=== PATIENT | male | born 1990 | race Two or more races ===

== ENCOUNTER 2023-06-16 12:02 | Inpatient (IN) | payer OTHER ==
[2023-06-16 12:21] VITALS: BMI 30.1
[2023-06-16] MEDS ORDERED: LORazepam 2 MG/ML SDV VIAL IM ONE (16:03)
[2023-06-16] MEDS ORDERED: chlordiazePOXIDE HCL 25 MG CAPSULE PO PRN (16:07)
[2023-06-16] MEDS ORDERED: ACETAMINOPHEN 325 MG TABLET (FP) PO PRN (16:16)
[2023-06-16] MEDS ORDERED: BENZONATATE 200 MG CAPSULE PO PRN (16:16)
[2023-06-16] MEDS ORDERED: guaiFENesin 600 MG TABLET.ER (FP) PO PRN (16:16)
[2023-06-16] MEDS ORDERED: ONDANSETRON *ODT* 4 MG TABLET SL PRN (16:16)
[2023-06-16] MEDS ORDERED: MAGNESIUM HYDROX 2400MG/30ML ORAL SUSPENSION 30 ML CUP PO PRN (16:16)
[2023-06-16] MEDS ORDERED: MAG HYDROX/AL HYDROX/SIMETH 30 ML UNIT-DOSE CUP PO PRN (16:16)
[2023-06-16] MEDS ORDERED: BENZOCAINE/MENTHOL (CHLORASEPTIC ) LOZENGE MM PRN (16:16)
[2023-06-16] MEDS ORDERED: BISMUTH SUBSALICYLATE 524 MG/30 ML PO PRN (16:16)
[2023-06-16] MEDS ORDERED: POLYETHYLENE GLYCOL (HEALTHYLAX) 3350 17 GM PACKET PO PRN (16:16)
[2023-06-16] MEDS ORDERED: LOPERAMIDE HCL 2 MG CAPSULE PO PRN (16:16)
[2023-06-16] MEDS ORDERED: DICYCLOMINE HCL 10 MG CAPSULE PO PRN (16:16)
[2023-06-16] MEDS ORDERED: IBUPROFEN 400 MG TABLET (FP) PO PRN (16:16)
[2023-06-16] MEDS: levETIRAcetam 500 MG TABLET (FP) PO SCH ×2 (17:28→22:37)
[2023-06-16] MEDS: chlordiazePOXIDE HCL 25 MG CAPSULE PO SCH ×2 (17:29→22:37)
[2023-06-16] MEDS: THIAMINE HCL 100 MG TABLET (FP) PO SCH (22:36)
[2023-06-16] MEDS: MELATONIN 5 MG TABLETS PO SCH (22:37)
[2023-06-17] MEDS: chlordiazePOXIDE HCL 25 MG CAPSULE PO SCH ×4 (05:18→22:21)
[2023-06-17] MEDS: hydrOXYzine PAMOATE 25 MG CAPSULE (FP) PO PRN (10:25)
[2023-06-17] MEDS: PRENATAL VITAMINS W/ FOLIC ACID TABLET (FP) PO SCH (10:25)
[2023-06-17] MEDS: METHOCARBAMOL 500 MG TABLET PO PRN (10:25)
[2023-06-17] MEDS: levETIRAcetam 500 MG TABLET (FP) PO SCH ×2 (10:25→22:21)
[2023-06-17 12:13] LABS: CALCIUM 9.1 mg/dL (8.5-10.1)
[2023-06-17 12:14] LABS: BLOOD UREA NITROGEN 11.1 mg/dL (7-18); HEMATOCRIT 45.4 % (35.4-49); HEMOGLOBIN 14.8 GM/dL (11.7-16.9); MCH 29.5 pg (25.7-33.7); MCHC 32.7 g/dl (32.0-35.9); MEAN CELL VOLUME 90.1 fl (80-96); MEAN PLT VOLUME 8.9 fl (7.5-11.1); PLATELET COUNT 213 10^3/uL (134-434); RBC 5.04 M/mm3 (4.00-5.60); RDW 13.9 % (11.9-15.9); WHITE BLOOD COUNT 5.1 K/mm3 (4.0-10.0)
[2023-06-17 12:18] LABS: CREATININE 1.2 mg/dL (0.55-1.3)
[2023-06-17 12:19] LABS: BILIRUBIN,TOTAL 1.9 mg/dL (0.2-1)
[2023-06-17] MEDS: MELATONIN 5 MG TABLETS PO SCH (22:21)
[2023-06-17] MEDS: THIAMINE HCL 100 MG TABLET (FP) PO SCH (22:21)
[2023-06-18] MEDS: chlordiazePOXIDE HCL 25 MG CAPSULE PO SCH ×4 (05:10→22:42)
[2023-06-18] MEDS: PRENATAL VITAMINS W/ FOLIC ACID TABLET (FP) PO SCH (10:06)
[2023-06-18] MEDS: hydrOXYzine PAMOATE 25 MG CAPSULE (FP) PO PRN (10:06)
[2023-06-18] MEDS: METHOCARBAMOL 500 MG TABLET PO PRN (10:06)
[2023-06-18] MEDS: levETIRAcetam 500 MG TABLET (FP) PO SCH ×2 (10:06→22:41)
[2023-06-18] MEDS: GABAPENTIN 300 MG CAPSULE PO SCH ×2 (11:26→22:42)
[2023-06-18] MEDS: IBUPROFEN 600 MG TABLET (FP) PO PRN (11:28)
[2023-06-18] MEDS ORDERED: hydrOXYzine PAMOATE 25 MG CAPSULE (FP) PO ONE (15:05)
[2023-06-18] MEDS: THIAMINE HCL 100 MG TABLET (FP) PO SCH (22:41)
[2023-06-18] MEDS: ATORVASTATIN CA 20 MG TABLET (FP) PO SCH (22:41)
[2023-06-18] MEDS: MELATONIN 5 MG TABLETS PO SCH (22:43)
[2023-06-19] MEDS ORDERED: chlordiazePOXIDE HCL 10 MG CAPSULE PO PRN
[2023-06-19] MEDS: GABAPENTIN 300 MG CAPSULE PO SCH ×3 (05:19→22:02)
[2023-06-19] MEDS: chlordiazePOXIDE HCL 10 MG CAPSULE PO SCH ×4 (05:19→22:03)
[2023-06-19] MEDS: PRENATAL VITAMINS W/ FOLIC ACID TABLET (FP) PO SCH (10:13)
[2023-06-19] MEDS: levETIRAcetam 500 MG TABLET (FP) PO SCH ×2 (10:13→22:02)
[2023-06-19] MEDS: IBUPROFEN 600 MG TABLET (FP) PO PRN (10:19)
[2023-06-19] MEDS: ATORVASTATIN CA 20 MG TABLET (FP) PO SCH (22:02)
[2023-06-19] MEDS: MELATONIN 5 MG TABLETS PO SCH (22:03)
[2023-06-19] MEDS: THIAMINE HCL 100 MG TABLET (FP) PO SCH (22:03)
[2023-06-20] MEDS: chlordiazePOXIDE HCL 10 MG CAPSULE PO SCH ×2 (05:32→17:13)
[2023-06-20] MEDS: GABAPENTIN 300 MG CAPSULE PO SCH ×3 (05:32→22:23)
[2023-06-20] MEDS: IBUPROFEN 600 MG TABLET (FP) PO PRN ×2 (05:34→12:59)
[2023-06-20] MEDS: levETIRAcetam 500 MG TABLET (FP) PO SCH ×2 (10:06→22:22)
[2023-06-20] MEDS: PRENATAL VITAMINS W/ FOLIC ACID TABLET (FP) PO SCH (10:06)
[2023-06-20] MEDS: hydrOXYzine PAMOATE 25 MG CAPSULE (FP) PO PRN (10:07)
[2023-06-20] MEDS: METHOCARBAMOL 500 MG TABLET PO PRN ×2 (10:07→22:23)
[2023-06-20] MEDS: THIAMINE HCL 100 MG TABLET (FP) PO SCH (22:23)
[2023-06-20] MEDS: MELATONIN 5 MG TABLETS PO SCH (22:23)
[2023-06-20] MEDS: ATORVASTATIN CA 20 MG TABLET (FP) PO SCH (22:23)
[2023-06-21] MEDS: hydrOXYzine PAMOATE 25 MG CAPSULE (FP) PO PRN (03:24)
[2023-06-21] MEDS ORDERED: chlordiazePOXIDE HCL 10 MG CAPSULE PO ONE (05:00)
[2023-06-21] MEDS: GABAPENTIN 300 MG CAPSULE PO SCH (05:12)
[2023-06-21 09:09] VITALS: BP 131/77; PULSE 93; RESP 18; TEMP 97.5
[2023-06-21] MEDS: PRENATAL VITAMINS W/ FOLIC ACID TABLET (FP) PO SCH (09:29)
== END 2023-06-21 09:05 | disposition home or self-care (01) | DRG 775 ==
LOC: YASAS 12:02 → Y6N 16:24
PROVIDERS: ADMIT Allergy & Immunology; ATTEND Surgery
PROC: HZ2ZZZZ Detoxification Services for Substance Abuse Treatment (ICD-10-PCS; principal; 2023-06-16)
DX: F10.230 Alcohol dependence with withdrawal, uncomplicated (principal); E78.5 Hyperlipidemia, unspecified; M54.50 Low back pain, unspecified; G89.29 Other chronic pain; R74.8 Abnormal levels of other serum enzymes
CPT/HCPCS: 36415; 80053; 85027; 86780; 87635

== ENCOUNTER 2023-06-21 19:04 | Inpatient (IN) | payer OTHER ==
[2023-06-21 19:36] VITALS: BMI 30.4
[2023-06-21] MEDS ORDERED: IBUPROFEN 600 MG TABLET (FP) PO PRN (20:07)
[2023-06-21] MEDS ORDERED: NICOTINE POLACRILEX 2 MG GUM BUC PRN (20:07)
[2023-06-21] MEDS ORDERED: METHOCARBAMOL 500 MG TABLET PO PRN (20:07)
[2023-06-21] MEDS ORDERED: IBUPROFEN 400 MG TABLET (FP) PO PRN (20:07)
[2023-06-21] MEDS ORDERED: BENZOCAINE/MENTHOL (CHLORASEPTIC ) LOZENGE MM PRN (20:07)
[2023-06-21] MEDS ORDERED: P-EPHED 60MG/TRIPROLIDI 2.5MG TABLET PO PRN (20:07)
[2023-06-21] MEDS ORDERED: guaiFENesin 600 MG TABLET.ER (FP) PO PRN (20:07)
[2023-06-21] MEDS ORDERED: ACETAMINOPHEN 325 MG TABLET (FP) PO PRN (20:07)
[2023-06-21] MEDS ORDERED: BENZONATATE 200 MG CAPSULE PO PRN (20:07)
[2023-06-21] MEDS ORDERED: MAGNESIUM HYDROX 2400MG/30ML ORAL SUSPENSION 30 ML CUP PO PRN (20:07)
[2023-06-21] MEDS ORDERED: MAG HYDROX/AL HYDROX/SIMETH 30 ML UNIT-DOSE CUP PO PRN (20:07)
[2023-06-21] MEDS ORDERED: hydrOXYzine PAMOATE 25 MG CAPSULE (FP) PO PRN (20:07)
[2023-06-21] MEDS ORDERED: POLYETHYLENE GLYCOL (HEALTHYLAX) 3350 17 GM PACKET PO PRN (20:07)
[2023-06-21] MEDS ORDERED: COLLOIDAL OATMEAL 1 BAR EACH TP PRN (20:07)
[2023-06-21] MEDS ORDERED: LOPERAMIDE HCL 2 MG CAPSULE PO PRN (20:07)
[2023-06-21] MEDS ORDERED: MELATONIN 5 MG TABLETS PO SCH (22:00)
[2023-06-21] MEDS ORDERED: GABAPENTIN 300 MG CAPSULE PO SCH (22:00)
[2023-06-21] MEDS ORDERED: THIAMINE HCL 100 MG TABLET (FP) PO SCH (22:00)
[2023-06-21] MEDS ORDERED: ATORVASTATIN CA 20 MG TABLET (FP) PO SCH (22:00)
[2023-06-22 05:04] VITALS: BP 118/80; PULSE 81; RESP 16; TEMP 97.7
[2023-06-22] MEDS ORDERED: FOLIC ACID 1 MG TABLET (FP) PO SCH (10:00)
[2023-06-22] MEDS ORDERED: PRENATAL VITAMINS W/ FOLIC ACID TABLET (FP) PO SCH (10:00)
== END 2023-06-22 05:03 | disposition left against medical advice (07) | DRG 770 ==
LOC: YASAS 19:04 → Y3E 21:33
PROVIDERS: ADMIT Allergy & Immunology; ATTEND Surgery
PROC: HZ42ZZZ Group Counseling for Substance Abuse Treatment, Cognitive-Behavioral (ICD-10-PCS; principal; 2023-06-21)
DX: F10.20 Alcohol dependence, uncomplicated (principal); E78.5 Hyperlipidemia, unspecified; M54.50 Low back pain, unspecified; R74.8 Abnormal levels of other serum enzymes
CPT/HCPCS: 87635; 87811

== ENCOUNTER 2023-10-11 09:06 | Inpatient (IN) | payer OTHER ==
[2023-10-11 09:41] VITALS: BMI 29.3
[2023-10-11] MEDS ORDERED: BISMUTH SUBSALICYLATE 524 MG/30 ML PO PRN (10:38)
[2023-10-11] MEDS ORDERED: LOPERAMIDE HCL 2 MG CAPSULE PO PRN (10:38)
[2023-10-11] MEDS ORDERED: NALOXONE HCL 0.4 MG/ML VIAL IM PRN (10:38)
[2023-10-11] MEDS ORDERED: NALOXONE HCL (KLOXXADO) 8 MG SPRAY NS PRN (10:38)
[2023-10-11] MEDS ORDERED: ACETAMINOPHEN 325 MG TABLET (FP) PO PRN (10:38)
[2023-10-11] MEDS ORDERED: BENZONATATE 200 MG CAPSULE PO PRN (10:38)
[2023-10-11] MEDS ORDERED: IBUPROFEN 600 MG TABLET (FP) PO PRN (10:38)
[2023-10-11] MEDS ORDERED: MAG HYDROX/AL HYDROX/SIMETH 30 ML UNIT-DOSE CUP PO PRN (10:38)
[2023-10-11] MEDS ORDERED: ONDANSETRON *ODT* 4 MG TABLET SL PRN (10:38)
[2023-10-11] MEDS ORDERED: POLYETHYLENE GLYCOL (HEALTHYLAX) 3350 17 GM PACKET PO PRN (10:38)
[2023-10-11] MEDS ORDERED: guaiFENesin 600 MG TABLET.ER (FP) PO PRN (10:38)
[2023-10-11] MEDS ORDERED: DICYCLOMINE HCL 10 MG CAPSULE PO PRN (10:38)
[2023-10-11] MEDS ORDERED: BENZOCAINE/MENTHOL (CHLORASEPTIC ) LOZENGE MM PRN (10:38)
[2023-10-11] MEDS ORDERED: MAGNESIUM HYDROX 2400MG/30ML ORAL SUSPENSION 30 ML CUP PO PRN (10:38)
[2023-10-11] MEDS ORDERED: LORazepam 1 MG TABLET ONE (11:04)
[2023-10-11] MEDS ORDERED: LORazepam 2 MG TABLET ONE (11:08)
[2023-10-11] MEDS: LORazepam 2 MG TABLET PO SCH (11:11)
[2023-10-11] MEDS: hydrOXYzine PAMOATE 25 MG CAPSULE (FP) PO PRN (12:28)
[2023-10-11] MEDS: METHOCARBAMOL 500 MG TABLET PO PRN (12:29)
[2023-10-11] MEDS: LORazepam 1 MG TABLET PO PRN (13:18)
[2023-10-11] MEDS: levETIRAcetam 250 MG TABLET PO SCH (14:42)
[2023-10-11] MEDS: chlordiazePOXIDE HCL 25 MG CAPSULE PO ONE (15:29)
[2023-10-11] MEDS: chlordiazePOXIDE HCL 25 MG CAPSULE PO SCH (17:07)
[2023-10-11] MEDS: THIAMINE HCL 100 MG TABLET (FP) PO SCH (22:06)
[2023-10-11] MEDS: MELATONIN 5 MG TABLETS PO SCH (22:06)
[2023-10-11] MEDS: ATORVASTATIN CA 20 MG TABLET (FP) PO SCH (22:07)
[2023-10-12] MEDS: chlordiazePOXIDE HCL 25 MG CAPSULE PO PRN (01:26)
[2023-10-12] MEDS: chlordiazePOXIDE HCL 25 MG CAPSULE PO SCH (05:18)
[2023-10-12] MEDS: PRENATAL VITAMINS W/ FOLIC ACID TABLET (FP) PO SCH (10:05)
[2023-10-12 10:58] LABS: HEMATOCRIT 42.6 % (35.4-49); HEMOGLOBIN 14.4 GM/dL (11.7-16.9); MCH 29.8 pg (25.7-33.7); MCHC 33.9 g/dl (32.0-35.9); MEAN CELL VOLUME 87.8 fl (80-96); MEAN PLT VOLUME 8.9 fl (7.5-11.1); PLATELET COUNT 254 10^3/uL (134-434); RBC 4.85 M/mm3 (4.00-5.60); RDW 17.2 % (11.9-15.9); WHITE BLOOD COUNT 4.9 K/mm3 (4.0-10.0)
[2023-10-12 11:04] LABS: ALBUMIN 4.1 g/dl (3.4-5.0)
[2023-10-12 11:06] LABS: BLOOD UREA NITROGEN 14.4 mg/dL (7-18); CREATININE 1.1 mg/dL (0.55-1.3)
[2023-10-12 11:08] LABS: TOT PROT 8.1 g/dl (6.4-8.2)
[2023-10-12 11:09] LABS: BILIRUBIN,TOTAL 1.1 mg/dL (0.2-1)
[2023-10-12] MEDS ORDERED: LORazepam 1 MG TABLET PO PRN (16:24)
[2023-10-12] MEDS: LORazepam 2 MG TABLET PO SCH (18:10)
[2023-10-13] MEDS ORDERED: LORazepam 1 MG TABLET PO SCH (05:00)
[2023-10-13] MEDS ORDERED: chlordiazePOXIDE HCL 10 MG CAPSULE PO SCH (05:00)
[2023-10-13] MEDS: LORazepam 1 MG TABLET PO SCH (05:23)
[2023-10-13] MEDS ORDERED: P-EPHED 60MG/TRIPROLIDI 2.5MG TABLET PO PRN (17:14)
[2023-10-14] MEDS ORDERED: LORazepam 0.5 MG TABLET PO PRN
[2023-10-14] MEDS ORDERED: chlordiazePOXIDE HCL 10 MG CAPSULE PO SCH (05:00)
[2023-10-14] MEDS ORDERED: LORazepam 0.5 MG TABLET PO SCH (05:00)
[2023-10-14] MEDS: LORazepam 0.5 MG TABLET PO SCH (05:09)
[2023-10-14 06:07] VITALS: RESP 16
[2023-10-14] MEDS: IBUPROFEN 400 MG TABLET (FP) PO PRN (06:53)
[2023-10-14 09:53] VITALS: BP 132/77; PULSE 75; TEMP 98
[2023-10-14] MEDS ORDERED: traZODone HCL 100 MG TABLET (FP) PO PRN (22:00)
[2023-10-15] MEDS ORDERED: chlordiazePOXIDE HCL 10 MG CAPSULE PO ONE (05:00)
[2023-10-15] MEDS ORDERED: LORazepam 0.5 MG TABLET PO ONE ×2 (05:00)
== END 2023-10-14 13:18 | disposition home or self-care (01) | DRG 775 ==
LOC: YASAS 09:06 → Y6N 11:05
PROVIDERS: ADMIT Allergy & Immunology; ATTEND Surgery
PROC: HZ2ZZZZ Detoxification Services for Substance Abuse Treatment (ICD-10-PCS; principal; 2023-10-11)
DX: F10.230 Alcohol dependence with withdrawal, uncomplicated (principal); F10.282 Alcohol dependence with alcohol-induced sleep disorder; E78.5 Hyperlipidemia, unspecified; Z86.69 Personal history of other diseases of the nervous system and sense organs
CPT/HCPCS: 0241U-QW; 36415; 80053; 80307; 82746; 83036; 84450; 85027; 86780; 87635; 87811; 93005; 93010

== ENCOUNTER 2024-01-07 18:38 | Inpatient (IN) | payer OTHER ==
[2024-01-07 19:01] VITALS: BMI 29.5
[2024-01-07] MEDS ORDERED: chlordiazePOXIDE HCL 25 MG CAPSULE PO PRN (19:05)
[2024-01-07] MEDS ORDERED: BENZOCAINE/MENTHOL (CHLORASEPTIC ) LOZENGE MM PRN (19:07)
[2024-01-07] MEDS ORDERED: LOPERAMIDE HCL 2 MG CAPSULE PO PRN (19:07)
[2024-01-07] MEDS ORDERED: ACETAMINOPHEN 325 MG TABLET (FP) PO PRN (19:07)
[2024-01-07] MEDS ORDERED: MAGNESIUM HYDROX 2400MG/30ML ORAL SUSPENSION 30 ML CUP PO PRN (19:07)
[2024-01-07] MEDS ORDERED: IBUPROFEN 400 MG TABLET (FP) PO PRN (19:07)
[2024-01-07] MEDS ORDERED: ONDANSETRON *ODT* 4 MG TABLET SL PRN (19:07)
[2024-01-07] MEDS ORDERED: BENZONATATE 200 MG CAPSULE PO PRN (19:07)
[2024-01-07] MEDS ORDERED: MAG HYDROX/AL HYDROX/SIMETH 30 ML UNIT-DOSE CUP PO PRN (19:07)
[2024-01-07] MEDS ORDERED: POLYETHYLENE GLYCOL (HEALTHYLAX) 3350 17 GM PACKET PO PRN (19:07)
[2024-01-07] MEDS ORDERED: guaiFENesin 600 MG TABLET.ER (FP) PO PRN (19:07)
[2024-01-07] MEDS ORDERED: DICYCLOMINE HCL 10 MG CAPSULE PO PRN (19:07)
[2024-01-07] MEDS ORDERED: BISMUTH SUBSALICYLATE 524 MG/30 ML PO PRN (19:07)
[2024-01-07] MEDS: IBUPROFEN 600 MG TABLET (FP) PO PRN (20:30)
[2024-01-07] MEDS: THIAMINE 100 MG TABLET PO SCH (22:06)
[2024-01-07] MEDS: MELATONIN 5 MG TABLETS PO SCH (22:06)
[2024-01-07] MEDS: chlordiazePOXIDE HCL 25 MG CAPSULE PO SCH (22:57)
[2024-01-08] MEDS: METHOCARBAMOL 500 MG TABLET PO PRN (04:44)
[2024-01-08 09:19] VITALS: RESP 18
[2024-01-08 09:24] LABS: HEMATOCRIT 40.8 % (35.4-49); HEMOGLOBIN 14.2 GM/dL (11.7-16.9); MCH 30.4 pg (25.7-33.7); MCHC 34.7 g/dl (32.0-35.9); MEAN CELL VOLUME 87.5 fl (80-96); MEAN PLT VOLUME 8.5 fl (7.5-11.1); PLATELET COUNT 241 10^3/uL (134-434); RBC 4.66 M/mm3 (4.00-5.60); RDW 14.4 % (11.9-15.9)
[2024-01-08 09:45] LABS: POTASSIUM 3.9 mmol/L (3.5-5.1)
[2024-01-08] MEDS: FOLIC ACID 1 MG TABLET (FP) PO SCH (09:56)
[2024-01-08] MEDS: PRENATAL VITAMINS W/ FOLIC ACID TABLET (FP) PO SCH (09:56)
[2024-01-08 09:59] LABS: CALCIUM 9.5 mg/dL (8.5-10.1)
[2024-01-08 10:02] LABS: ALBUMIN 3.6 g/dl (3.4-5.0)
[2024-01-08] MEDS: hydrOXYzine PAMOATE 25 MG CAPSULE (FP) PO ONE (10:52)
[2024-01-08 13:00] VITALS: BP 117/81; PULSE 99; TEMP 97.1
[2024-01-08] MEDS ORDERED: chlordiazePOXIDE HCL 25 MG CAPSULE PO SCH (17:00)
[2024-01-09] MEDS ORDERED: chlordiazePOXIDE HCL 25 MG CAPSULE PO SCH (05:00)
[2024-01-09] MEDS ORDERED: chlordiazePOXIDE HCL 10 MG CAPSULE PO SCH (06:00)
[2024-01-10] MEDS ORDERED: chlordiazePOXIDE HCL 10 MG CAPSULE PO PRN
[2024-01-10] MEDS ORDERED: chlordiazePOXIDE HCL 10 MG CAPSULE PO SCH ×2 (05:00→06:00)
[2024-01-11] MEDS ORDERED: chlordiazePOXIDE HCL 10 MG CAPSULE PO SCH (05:00)
[2024-01-11] MEDS ORDERED: chlordiazePOXIDE HCL 10 MG CAPSULE PO ONE (06:00)
[2024-01-12] MEDS ORDERED: chlordiazePOXIDE HCL 10 MG CAPSULE PO ONE (05:00)
== END 2024-01-08 13:23 | disposition home or self-care (01) | DRG 775 ==
LOC: YASAS 18:38 → Y6N 19:45
PROVIDERS: ADMIT Allergy & Immunology; ATTEND Surgery
PROC: HZ2ZZZZ Detoxification Services for Substance Abuse Treatment (ICD-10-PCS; principal; 2024-01-07)
DX: F10.230 Alcohol dependence with withdrawal, uncomplicated (principal)
CPT/HCPCS: 36415; 80053; 80305; 85027; 86780

== ENCOUNTER 2024-03-23 08:25 | Inpatient (IN) | payer OTHER ==
[2024-03-23 09:11] VITALS: BMI 28.1
[2024-03-23] MEDS ORDERED: guaiFENesin 600 MG TABLET.ER (FP) PO PRN (09:38)
[2024-03-23] MEDS ORDERED: DICYCLOMINE HCL 10 MG CAPSULE PO PRN (09:38)
[2024-03-23] MEDS ORDERED: NALOXONE HCL 0.4 MG/ML VIAL IM PRN (09:38)
[2024-03-23] MEDS ORDERED: NALOXONE (NARCAN) HCL 4 MG/0.1 ML SPRAY NS PRN (09:38)
[2024-03-23] MEDS ORDERED: IBUPROFEN 400 MG TABLET (FP) PO PRN (09:38)
[2024-03-23] MEDS ORDERED: ACETAMINOPHEN 325 MG TABLET (FP) PO PRN (09:38)
[2024-03-23] MEDS ORDERED: BISMUTH SUBSALICYLATE 524 MG/30 ML PO PRN (09:38)
[2024-03-23] MEDS ORDERED: MAG HYDROX/AL HYDROX/SIMETH 30 ML UNIT-DOSE CUP PO PRN (09:38)
[2024-03-23] MEDS ORDERED: IBUPROFEN 600 MG TABLET (FP) PO PRN (09:38)
[2024-03-23] MEDS ORDERED: BENZONATATE 200 MG CAPSULE PO PRN (09:38)
[2024-03-23] MEDS ORDERED: LOPERAMIDE HCL 2 MG CAPSULE PO PRN (09:38)
[2024-03-23] MEDS ORDERED: BENZOCAINE/MENTHOL (CHLORASEPTIC ) LOZENGE MM PRN (09:38)
[2024-03-23] MEDS ORDERED: POLYETHYLENE GLYCOL (HEALTHYLAX) 3350 17 GM PACKET PO PRN (09:38)
[2024-03-23] MEDS ORDERED: MAGNESIUM HYDROX 2400MG/30ML ORAL SUSPENSION 30 ML CUP PO PRN (09:38)
[2024-03-23] MEDS ORDERED: METHYL SALICYLATE/MENTHOL OINT 30 GM TUBE TP PRN (09:41)
[2024-03-23] MEDS ORDERED: chlordiazePOXIDE HCL 25 MG CAPSULE ONE (09:46)
[2024-03-23] MEDS ORDERED: ONDANSETRON *ODT* 4 MG TABLET ONE (09:50)
[2024-03-23] MEDS: chlordiazePOXIDE HCL 25 MG CAPSULE PO ONE (09:52)
[2024-03-23] MEDS: ONDANSETRON *ODT* 4 MG TABLET SL PRN (09:52)
[2024-03-23] MEDS: PRENATAL VITAMINS W/ FOLIC ACID TABLET (FP) PO SCH (09:53)
[2024-03-23] MEDS: chlordiazePOXIDE HCL 25 MG CAPSULE PO SCH (11:08)
[2024-03-23] MEDS: THIAMINE 100 MG TABLET PO SCH (22:23)
[2024-03-23] MEDS: MELATONIN 5 MG TABLETS PO SCH (22:23)
[2024-03-23] MEDS: traZODone HCL 50 MG TABLET (FP) PO SCH (22:23)
[2024-03-24 09:45] LABS: CHLORIDE 106 mmol/L (98-107); POTASSIUM 4.2 mmol/L (3.5-5.1); SODIUM 142 mmol/L (136-145)
[2024-03-24 09:46] LABS: HEMATOCRIT 43.8 % (35.4-49); HEMOGLOBIN 14.7 GM/dL (11.7-16.9); MCH 29.9 pg (25.7-33.7); MCHC 33.6 g/dl (32.0-35.9); MEAN CELL VOLUME 88.8 fl (80-96); MEAN PLT VOLUME 9.1 fl (7.5-11.1); PLATELET COUNT 252 10^3/uL (134-434); RBC 4.93 M/mm3 (4.00-5.60); RDW 15.4 % (11.9-15.9); WHITE BLOOD COUNT 4.9 K/mm3 (4.0-10.0)
[2024-03-24 09:50] LABS: ALBUMIN 3.8 g/dl (3.4-5.0); ANION GAP 9 mmol/L (4-13); BLOOD UREA NITROGEN 7.4 mg/dL (7-18); CO2 28 mmol/L (21-32); GLUCOSE,RANDOM 134 mg/dL (74-106)
[2024-03-24 09:51] LABS: CALCIUM 9.3 mg/dL (8.5-10.1)
[2024-03-24 09:53] LABS: CREATININE 1.2 mg/dL (0.55-1.3); SGOT/AST 53 U/L (15-37); SGPT/ALT 107 U/L (13-61)
[2024-03-24 09:54] LABS: TOT PROT 7.6 g/dl (6.4-8.2)
[2024-03-24 09:55] LABS: ALK PHOS 78 U/L (45-117); BILIRUBIN,TOTAL 0.7 mg/dL (0.2-1)
[2024-03-24] MEDS: METHOCARBAMOL 500 MG TABLET PO PRN (10:09)
[2024-03-25] MEDS: chlordiazePOXIDE HCL 25 MG CAPSULE PO SCH (05:32)
[2024-03-25] MEDS: NICOTINE POLACRILEX 2 MG GUM BC PRN (10:16)
[2024-03-25] MEDS: chlordiazePOXIDE HCL 25 MG CAPSULE PO PRN (13:36)
[2024-03-26] MEDS: chlordiazePOXIDE HCL 10 MG CAPSULE PO SCH (05:00)
[2024-03-26] MEDS: chlordiazePOXIDE HCL 10 MG CAPSULE PO PRN (08:25)
[2024-03-26] MEDS: NICOTINE 21 MG/24 HOURS TOPICAL PATCH TD SCH (10:27)
[2024-03-27] MEDS: chlordiazePOXIDE HCL 10 MG CAPSULE PO SCH (05:01)
[2024-03-27] MEDS: hydrOXYzine PAMOATE 25 MG CAPSULE (FP) PO PRN (09:24)
[2024-03-28] MEDS: chlordiazePOXIDE HCL 10 MG CAPSULE PO ONE (04:51)
[2024-03-28 09:07] VITALS: BP 109/65; PULSE 95; RESP 16; TEMP 97.3
== END 2024-03-28 09:15 | disposition other institution (70) | DRG 775 ==
LOC: YASAS 08:25 → Y6N 10:04
PROVIDERS: ADMIT Allergy & Immunology; ATTEND Surgery
PROC: HZ2ZZZZ Detoxification Services for Substance Abuse Treatment (ICD-10-PCS; principal; 2024-03-23)
DX: F10.230 Alcohol dependence with withdrawal, uncomplicated (principal); F17.210 Nicotine dependence, cigarettes, uncomplicated; F10.282 Alcohol dependence with alcohol-induced sleep disorder; F32.A Depression, unspecified; R74.8 Abnormal levels of other serum enzymes
CPT/HCPCS: 36415; 80053; 80305; 80307; 85027; 86780; 93005; 93010; Q0162

== ENCOUNTER 2024-11-14 23:37 | Inpatient (IN) | payer OTHER ==
[2024-11-14 21:31] VITALS: BMI 28.3
[2024-11-15] MEDS ORDERED: DICYCLOMINE HCL 10 MG CAPSULE PO PRN (00:15)
[2024-11-15] MEDS ORDERED: MAG HYDROX/AL HYDROX/SIMETH 30 ML UNIT-DOSE CUP PO PRN (00:15)
[2024-11-15] MEDS ORDERED: LOPERAMIDE HCL 2 MG CAPSULE PO PRN (00:15)
[2024-11-15] MEDS ORDERED: ONDANSETRON *ODT* 4 MG TABLET SL PRN (00:15)
[2024-11-15] MEDS ORDERED: NICOTINE POLACRILEX 2 MG GUM BUC PRN (00:15)
[2024-11-15] MEDS ORDERED: guaiFENesin 600 MG TABLET.ER (FP) PO PRN (00:15)
[2024-11-15] MEDS ORDERED: IBUPROFEN 600 MG TABLET (FP) PO PRN (00:15)
[2024-11-15] MEDS ORDERED: POLYETHYLENE GLYCOL (HEALTHYLAX) 3350 17 GM PACKET PO PRN (00:15)
[2024-11-15] MEDS ORDERED: BENZONATATE 200 MG CAPSULE PO PRN (00:15)
[2024-11-15] MEDS ORDERED: BISMUTH SUBSALICYLATE 524 MG/30 ML PO PRN (00:15)
[2024-11-15] MEDS ORDERED: BENZOCAINE/MENTHOL (CHLORASEPTIC ) LOZENGE MM PRN (00:15)
[2024-11-15] MEDS ORDERED: NALOXONE (NARCAN) HCL 4 MG/0.1 ML SPRAY NS PRN (00:15)
[2024-11-15] MEDS ORDERED: IBUPROFEN 400 MG TABLET (FP) PO PRN (00:15)
[2024-11-15] MEDS ORDERED: MAGNESIUM HYDROX 2400MG/30ML ORAL SUSPENSION 30 ML CUP PO PRN (00:15)
[2024-11-15] MEDS ORDERED: ACETAMINOPHEN 325 MG TABLET (FP) PO PRN (00:15)
[2024-11-15] MEDS ORDERED: TUBERCULIN PPD 5 TU/0.1ML VIAL ID ONE (00:41)
[2024-11-15] MEDS ORDERED: chlordiazePOXIDE HCL 25 MG CAPSULE ONE (01:18)
[2024-11-15] MEDS: chlordiazePOXIDE HCL 25 MG CAPSULE PO PRN (01:18)
[2024-11-15] MEDS ORDERED: METHOCARBAMOL 500 MG TABLET ONE (01:22)
[2024-11-15] MEDS ORDERED: hydrOXYzine PAMOATE 25 MG CAPSULE (FP) PO ONE (01:22)
[2024-11-15] MEDS: hydrOXYzine PAMOATE 25 MG CAPSULE (FP) PO PRN (01:23)
[2024-11-15] MEDS: METHOCARBAMOL 500 MG TABLET PO PRN (01:24)
[2024-11-15] MEDS: chlordiazePOXIDE HCL 25 MG CAPSULE PO SCH (05:20)
[2024-11-15] MEDS: PRENATAL VITAMINS W/ FOLIC ACID TABLET (FP) PO SCH (10:09)
[2024-11-15] MEDS: NICOTINE 14 MG/24 HOURS TOPICAL PATCH TD SCH (10:10)
[2024-11-15 16:55] VITALS: BP 123/82; PULSE 70; RESP 18; TEMP 96.9
[2024-11-15] MEDS ORDERED: traZODone HCL 100 MG TABLET (FP) PO SCH (22:00)
[2024-11-15] MEDS ORDERED: THIAMINE 100 MG TABLET PO SCH (22:00)
[2024-11-15] MEDS ORDERED: MELATONIN 5 MG TABLETS PO SCH (22:00)
[2024-11-16] MEDS ORDERED: chlordiazePOXIDE HCL 25 MG CAPSULE PO SCH (05:00)
[2024-11-17] MEDS ORDERED: chlordiazePOXIDE HCL 10 MG CAPSULE PO PRN
[2024-11-17] MEDS ORDERED: chlordiazePOXIDE HCL 10 MG CAPSULE PO SCH (05:00)
[2024-11-18] MEDS ORDERED: chlordiazePOXIDE HCL 10 MG CAPSULE PO SCH (05:00)
[2024-11-19] MEDS ORDERED: chlordiazePOXIDE HCL 10 MG CAPSULE PO ONE (05:00)
== END 2024-11-15 18:13 | disposition left against medical advice (07) | DRG 770 ==
LOC: YASAS 23:37 → Y3N 11-15 01:36
PROVIDERS: ADMIT Allergy & Immunology; ATTEND Allergy & Immunology
PROC: HZ2ZZZZ Detoxification Services for Substance Abuse Treatment (ICD-10-PCS; principal; 2024-11-15)
DX: F10.230 Alcohol dependence with withdrawal, uncomplicated (principal); F17.210 Nicotine dependence, cigarettes, uncomplicated; G47.00 Insomnia, unspecified
CPT/HCPCS: 36415; 80305; 80307; 93005; 93010

== ENCOUNTER 2024-12-17 19:41 | Inpatient (IN) | payer OTHER ==
[2024-12-17 20:19] VITALS: BMI 27.8
[2024-12-17] MEDS ORDERED: chlordiazePOXIDE HCL 25 MG CAPSULE PO PRN (20:32)
[2024-12-17] MEDS ORDERED: BENZONATATE 200 MG CAPSULE PO PRN (20:35)
[2024-12-17] MEDS ORDERED: BENZOCAINE/MENTHOL (CHLORASEPTIC ) LOZENGE MM PRN (20:35)
[2024-12-17] MEDS ORDERED: hydrOXYzine PAMOATE 25 MG CAPSULE (FP) PO PRN (20:35)
[2024-12-17] MEDS ORDERED: IBUPROFEN 400 MG TABLET (FP) PO PRN (20:35)
[2024-12-17] MEDS ORDERED: IBUPROFEN 600 MG TABLET (FP) PO PRN (20:35)
[2024-12-17] MEDS ORDERED: NALOXONE (NARCAN) HCL 4 MG/0.1 ML SPRAY NS PRN (20:35)
[2024-12-17] MEDS ORDERED: ACETAMINOPHEN 325 MG TABLET (FP) PO PRN (20:35)
[2024-12-17] MEDS ORDERED: POLYETHYLENE GLYCOL (HEALTHYLAX) 3350 17 GM PACKET PO PRN (20:35)
[2024-12-17] MEDS ORDERED: LOPERAMIDE HCL 2 MG CAPSULE PO PRN (20:35)
[2024-12-17] MEDS ORDERED: guaiFENesin 600 MG TABLET.ER (FP) PO PRN (20:35)
[2024-12-17] MEDS ORDERED: MAGNESIUM HYDROX 2400MG/30ML ORAL SUSPENSION 30 ML CUP PO PRN (20:35)
[2024-12-17] MEDS ORDERED: BISMUTH SUBSALICYLATE 524 MG/30 ML PO PRN (20:35)
[2024-12-17] MEDS ORDERED: DICYCLOMINE HCL 10 MG CAPSULE PO PRN (20:35)
[2024-12-17] MEDS ORDERED: MAG HYDROX/AL HYDROX/SIMETH 30 ML UNIT-DOSE CUP PO PRN (20:35)
[2024-12-17] MEDS ORDERED: ONDANSETRON *ODT* 4 MG TABLET SL PRN (20:35)
[2024-12-17] MEDS ORDERED: chlordiazePOXIDE HCL 25 MG CAPSULE ONE (21:01)
[2024-12-17] MEDS: chlordiazePOXIDE HCL 25 MG CAPSULE PO ONE (21:03)
[2024-12-17] MEDS: THIAMINE 100 MG TABLET PO SCH (22:31)
[2024-12-17] MEDS: MELATONIN 5 MG TABLETS PO SCH (22:31)
[2024-12-17] MEDS: chlordiazePOXIDE HCL 25 MG CAPSULE PO SCH (22:32)
[2024-12-17] MEDS: levETIRAcetam 500 MG TABLET (FP) PO SCH (23:10)
[2024-12-18] MEDS: METHOCARBAMOL 500 MG TABLET PO PRN (05:58)
[2024-12-18 09:43] VITALS: BP 139/90; PULSE 85; RESP 16; TEMP 97.3
[2024-12-18] MEDS: PRENATAL VITAMINS W/ FOLIC ACID TABLET (FP) PO SCH (10:06)
[2024-12-18 11:07] LABS: HEMATOCRIT 39.1 % (40.1-51.0); HEMOGLOBIN 13.7 g/dL (13.7-17.5); MEAN CELL VOLUME 86.7 fl (79.0-92.2); MEAN PLT VOLUME 11.6 fl (9.4-12.4); PLATELET COUNT 99 x10^3/uL (163-337); RDW 12.9 % (12.0-15.6)
[2024-12-18 11:30] LABS: POTASSIUM 3.8 mmol/L (3.5-5.1)
[2024-12-18 11:39] LABS: ALBUMIN 3.1 g/dl (3.4-5.0); BLOOD UREA NITROGEN 13.6 mg/dL (7-18); CALCIUM 8.6 mg/dL (8.5-10.1)
[2024-12-18 11:43] LABS: CREATININE 1.3 mg/dL (0.55-1.3)
[2024-12-18 11:44] LABS: BILIRUBIN,TOTAL 1.4 mg/dL (0.2-1); TOT PROT 6.9 g/dl (6.4-8.2)
[2024-12-18] MEDS ORDERED: traZODone HCL 100 MG TABLET (FP) PO SCH (22:00)
[2024-12-19] MEDS ORDERED: chlordiazePOXIDE HCL 25 MG CAPSULE PO SCH (05:00)
[2024-12-20] MEDS ORDERED: chlordiazePOXIDE HCL 10 MG CAPSULE PO PRN
[2024-12-20] MEDS ORDERED: chlordiazePOXIDE HCL 10 MG CAPSULE PO SCH (05:00)
[2024-12-21] MEDS ORDERED: chlordiazePOXIDE HCL 10 MG CAPSULE PO SCH (05:00)
[2024-12-22] MEDS ORDERED: chlordiazePOXIDE HCL 10 MG CAPSULE PO ONE (05:00)
== END 2024-12-18 11:30 | disposition home or self-care (01) | DRG 775 ==
LOC: YASAS 19:41 → Y6N 21:01
PROVIDERS: ADMIT Allergy & Immunology; ATTEND Allergy & Immunology
PROC: HZ2ZZZZ Detoxification Services for Substance Abuse Treatment (ICD-10-PCS; principal; 2024-12-17)
DX: F10.230 Alcohol dependence with withdrawal, uncomplicated (principal); F17.210 Nicotine dependence, cigarettes, uncomplicated; F10.280 Alcohol dependence with alcohol-induced anxiety disorder; F10.282 Alcohol dependence with alcohol-induced sleep disorder; F32.A Depression, unspecified; K70.9 Alcoholic liver disease, unspecified; R56.9 Unspecified convulsions
CPT/HCPCS: 36415; 80053; 80305; 80307; 85027; 86780; 93005; 93010